=== PATIENT | female | born 1985 | race Caucasian/White ===

== ENCOUNTER 2020-08-11 01:40 | Inpatient (IN) | payer OTHER ==
[2020-08-11] MEDS ORDERED: ELECTROLYTE-148 SOLN 1,000 ML IV SCH ×2 (03:00→05:30)
[2020-08-11 05:45] LABS: BASO % 0.5 % (0-2.0); EOS % 0.6 % (0-4.5); HEMATOCRIT 35.5 % (32.4-45.2); HEMOGLOBIN 11.8 GM/dL (10.7-15.3); LYMPH % 19.3 % (8-40); MCHC 33.3 g/dl (32.0-36.0); MEAN CELL VOLUME 81.2 fl (80-96); MONO % 6.9 % (3.8-10.2); NEUT % 72.7 % (42.8-82.8); PLATELET COUNT 303 K/MM3 (134-434); RBC 4.38 M/mm3 (3.60-5.2); RDW 15.6 % (11.6-15.6); WHITE BLOOD COUNT 12.9 K/mm3 (4.0-10.0)
[2020-08-11 05:58] LABS: INR 1.03 (0.83-1.09); PROTHROMBIN TIME (PATIENT) 12.6 SEC (9.7-13.0)
[2020-08-11 06:01] LABS: ACTIVATED PTT 29.5 SECONDS (25.2-36.5)
[2020-08-11 06:04] VITALS: BMI 36.7
[2020-08-11 06:25] LABS: CALCIUM 8.8 mg/dL (8.5-10.1); POTASSIUM 3.8 mmol/L (3.5-5.1)
[2020-08-11 06:27] LABS: BLOOD UREA NITROGEN 9.9 mg/dL (7-18)
[2020-08-11 06:30] LABS: CREATININE 0.6 mg/dL (0.55-1.3)
[2020-08-11] MEDS ORDERED: AMPICILLIN SODIUM 2 GM VIAL ONE (07:28)
[2020-08-11] MEDS ORDERED: SODIUM CHLORIDE 100 ML IVPB ONE (07:28)
[2020-08-11] MEDS ORDERED: AMPICILLIN - 2 GM in SODIUM CHLORIDE 100 ML IVPB ONE (07:30)
[2020-08-11] MEDS ORDERED: AMPICILLIN - 1 GM in SODIUM CHLORIDE 100 ML IVPB SCH (11:30)
[2020-08-11] MEDS ORDERED: OXYTOCIN 20 UNITS in 0.9% NS 20 UNIT/1,000 ML INFUS.BAG IV ONE (13:44)
[2020-08-11] MEDS ORDERED: BENZOCAINE 28 GM HEMORRHOIDAL OINTMENT TP PRN (14:20)
[2020-08-11] MEDS ORDERED: IBUPROFEN 600 MG TABLET (FP) PO PRN (14:20)
[2020-08-11] MEDS ORDERED: WITCH HAZEL 50% (TUCKS) 40 PAD/JAR PAD TP PRN (14:20)
[2020-08-11] MEDS ORDERED: BENZOCAINE 20% 57 GM BOTTLE TP PRN (14:20)
[2020-08-11] MEDS ORDERED: METHYLERGONOVINE MALEATE 0.2 MG/1 ML AMP IM PRN (14:20)
[2020-08-11] MEDS ORDERED: ACETAMINOPHEN 325 MG TABLET (FP) PO PRN (14:20)
[2020-08-11] MEDS ORDERED: BISACODYL 10 MG SUPP.RECT RC PRN (14:20)
[2020-08-11] MEDS ORDERED: OXYTOCIN 20 UNITS in 0.9% NS 20 UNIT/1,000 ML INFUS.BAG IV SCH (14:30)
[2020-08-12 07:12] LABS: BASO % 0.5 % (0-2.0); EOS % 0.4 % (0-4.5); HEMATOCRIT 32.7 % (32.4-45.2); HEMOGLOBIN 10.8 GM/dL (10.7-15.3); LYMPH % 18.5 % (8-40); MCHC 33.1 g/dl (32.0-36.0); MEAN CELL VOLUME 81.5 fl (80-96); MEAN PLT VOLUME 8.7 fl (7.5-11.1); MONO % 6.7 % (3.8-10.2); NEUT % 73.9 % (42.8-82.8); PLATELET COUNT 287 K/MM3 (134-434); RBC 4.01 M/mm3 (3.60-5.2); RDW 15.7 % (11.6-15.6); WHITE BLOOD COUNT 15.5 K/mm3 (4.0-10.0)
[2020-08-12 14:10] VITALS: BP 106/71; PULSE 84; TEMP 98.5
[2020-08-12] MEDS ORDERED: SENNOSIDES/DOCUSATE COMBO (SENNA PLUS) TABLET (UD) PO PRN (22:00)
== END 2020-08-12 15:50 | disposition home or self-care (01) | DRG 807 ==
LOC: JDEL 01:40 → JLDR 05:15 → J3W 16:00
PROVIDERS: ADMIT Specialist; ATTEND Specialist
PROC: 10E0XZZ Delivery of Products of Conception, External Approach (ICD-10-PCS; principal; 2020-08-11)
DX: O69.81X0 Labor and delivery complicated by cord around neck, without compression, not applicable or unspecified (principal); Z37.0 Single live birth; Z3A.38 38 weeks gestation of pregnancy
CPT/HCPCS: 36415; 59025; 59409; 80048; 85025; 85461; 85610; 85730; 86780; 86850; 86870; 86900; 86901; 86902; 86999; 87529; C9803; U0003